=== PATIENT | female | born 1990 | race Caucasian/White ===

== ENCOUNTER 2018-11-24 13:01 | Emergency (ER) | payer BC ==
[~2018-11-24] VITALS: Ht 172.7 cm; Wt 107.0 kg
[~2018-11-24 13:01] MED LIST: LORTAB5 PO; SPRINTEC 2828 DAY OR; SPRINTEC 2828 DAY PO; SYNTHROID75 MCG PO; [UNRECOGNIZED DRUG - REMARK]
[2018-11-24] MEDS ORDERED: PRIMELLA PO (13:25)
[2018-11-24 13:57] LABS: HEMATOCRIT 39.7 % (37.0-47.0); HEMOGLOBIN 13.5 g/dl (12.0-16.0); IMMATURE GRANULOCYTES 0.4 % (0.0-5.0); MEAN CELL VOLUME 89.4 fL CALC (80.0-100.0); MEAN CORPUSCULAR HGB 30.4 pG CALC (26.0-32.0); NEUT# 9.92 thou/uL (2.00-7.15); RED BLOOD COUNT 4.44 mill/uL (4.20-5.60); RED CELL DISTRI WIDTH 12.3 % (11.5-15.5)
[2018-11-24 14:01] LABS: URINE BILIRUBIN - DIPSTICK NEGATIVE (NEGATIVE); URINE BLOOD DIPSTICK LARGE (NEGATIVE); URINE COLOR YELLOW; URINE GLUCOSE - DIPSTICK NEGATIVE (NEGATIVE); URINE KETONE >=80 mg/dL (NEGATIVE); URINE LEUK ESTERASE NEGATIVE (NEGATIVE); URINE PH 5.5 (4.5-8.0); URINE PROTEIN - DIPSTICK 30 mg/dL (NEG-TRACE); URINE SPECIFIC GRAVITY >=1.030; URINE UROBILINOGEN - DIPSTICK 0.2 E.U./dL (0.2)
[2018-11-24 14:04] LABS: URINE NITRITE - DIPSTICK NEGATIVE (Negative)
[2018-11-24 14:10] LABS: URINE BACTERIA RARE hpf; URINE EPITHELIAL CELLS RARE EPI/hpf (0-FEW); URINE WBC 0-2 WBC/hpf (0-5)
[2018-11-24 14:12] LABS: ALBUMIN 4.6 g/dL (3.2-5.0); ALKALINE PHOSPHATASE 43 u/l (38-126); ANION GAP 17 (6-22 (CALC)); BUN 13 mg/dL (7-17); BUN/CREATININE RATIO 16 (12-20 (CALC)); CARBON DIOXIDE 22 mmol/l (22-30); CHLORIDE 105 mmol/l (95-108); CREATININE 0.8 mg/dL (0.5-1.0); GFR > 60 ML/MIN (>=60 (CALC)); GFR FOR AFR.AMER. > 60 ML/MIN (>=60 (CALC)); POTASSIUM 4.5 mmol/l (3.5-5.1); SODIUM 139 mmol/l (137-146); TOTAL PROTEIN 7.3 g/dL (6.3-8.2)
[2018-11-24 14:13] LABS: BILIRUBIN, TOTAL 0.6 mg/dL (0.0-1.4); SGOT/AST 35 u/l (14-36)
[2018-11-24] MEDS ORDERED: ZOFRAN4 MG/TAB PO (15:37)
[2018-11-24] MEDS ORDERED: TAMSULOSIN0.4 MG PO (15:37)
[2018-11-24] MEDS ORDERED: TRAMADOL HYDROC50 MG PO (15:37)
[2018-11-24 16:07] VITALS: BP 117/62
== END 2018-11-24 16:07 | disposition home or self-care (01) | DRG 694 ==
LOC: ED 13:01
PROVIDERS: Family Medicine
DX: N20.1 Calculus of ureter (principal)
CPT/HCPCS: Q9967